=== PATIENT | male | born 1975 | race African-American/Black ===

== ENCOUNTER 2021-12-29 21:18 | Emergency (ER) | payer SELFPAY ==
[~2021-12-29] VITALS: Ht 167.6 cm; Wt 72.6 kg
--- NOTE | 2021-12-29 21:19 | NUR ---
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 PATIENT LKWT AT 1630. PATIENT IS A/O X 4, RR EVEN AND UNLABORED, NO SOB NOTED. 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 PATIENT TAKEN TO ER BED 10, PATIENT CONNECTED TO CARDIAC AND POX MONITOR.
--- NOTE | 2021-12-29 21:20 | NUR ---
RAC #[id number]; PATENT AND INTACT. BLOOD COLLECTED AND SENT TO LAB
--- NOTE | 2021-12-29 21:21 | NUR ---
DR. ARRINGTON AT PT'S BEDSIDE
--- NOTE | 2021-12-29 21:22 | NUR ---
CODE STROKE ACTIVATED
--- NOTE | 2021-12-29 21:22 | NUR ---
CODE STROKE CALLED
--- NOTE | 2021-12-29 21:22 | NUR ---
STUDENT ACCOUNTS MANAGER AT PT'S BEDSIDE
--- NOTE | 2021-12-29 21:26 | NUR ---
PT TAKEN TO CT VIA ACLS PROTOCOL
[2021-12-29] MEDS ORDERED: IOHEXOL-350 100 ML VIAL IV ONE (21:27)
[2021-12-29] MEDS ORDERED: IV NS 0.9% 250 ML IV ONE (21:27)
[2021-12-29 21:30] LABS: BASOPHILS # (AUTO) 0.1 K/uL (0.0-0.2); BASOPHILS % (AUTO) 1.2 % (0.0-2.0); EOSINOPHILS % (AUTO) 3.2 % (0.0-6.0); HEMATOCRIT 30 % (39-51); HEMOGLOBIN 9.6 g/dL (13.5-17.5); LYMPHOCYTES # (AUTO) 4.1 K/uL (0.8-4.8); LYMPHOCYTES % (AUTO) 43.6 % (20.0-44.0); MEAN CORPUSCULAR HGB CONC 33 g/dl (31.0-36.0); MEAN CORPUSCULAR VOLUME 72 fL (80-96); MONOCYTES # (AUTO) 0.8 K/uL (0.1-1.30); MONOCYTES % (AUTO) 8.8 % (2.0-12.0); NEUTROPHILS % (AUTO) 43.2 % (43.0-81.0); PLATELET COUNT (AUTO) 153 K/uL (150-450); WHITE BLOOD COUNT (AUTO) 9.3 K/uL (4.3-11.0)
--- NOTE | 2021-12-29 21:35 | NUR ---
PT RETURNED TO ER BED [address] VIA ACLS PROTOCOL
[2021-12-29 21:42] LABS: CALCIUM, SERUM 8.8 mg/dL (8.5-10.1); CARBON DIOXIDE 22 mmol/L (21-32); CHLORIDE 104 mmol/L (98-107); CREATININE 0.9 mg/dL (0.6-1.3); GLUCOSE 113 mg/dL (74-106); POTASSIUM 3.6 mmol/L (3.5-5.1); SODIUM SERUM 138 mmol/L (136-145); UREA NITROGEN, BLOOD 14 mg/dL (7-18)
--- NOTE | 2021-12-29 21:49 | NUR ---
PT ON PHONE CALL WITH TELEHEALTH
[2021-12-29] MEDS ORDERED: diphenhydrAMINE HCL 50 MG/ML VIAL IV ONE (22:00)
[2021-12-29] MEDS ORDERED: ASPIRIN 81 MG TAB.CHEW PO ONE (22:00)
[2021-12-29] MEDS ORDERED: METOCLOPRAMIDE HCL 10 MG/2 ML VIAL IV ONE (22:00)
[2021-12-29] MEDS ORDERED: KETOROLAC TROMETHAMINE INJ 30 MG/ML VIAL IV ONE (22:00)
[2021-12-29] MEDS ORDERED: ATORVASTATIN 40 MG TABLET PO SCH (22:00)
--- NOTE | 2021-12-29 22:01 | NUR ---
covid swab sent to lab
[2021-12-29] MEDS ORDERED: METOCLOPRAMIDE HCL 10 MG/2 ML VIAL ONE (22:05)
[2021-12-29] MEDS ORDERED: diphenhydrAMINE HCL 50 MG/ML VIAL ONE (22:05)
[2021-12-29] MEDS ORDERED: ATORVASTATIN 40 MG TABLET ONE (22:05)
[2021-12-29] MEDS ORDERED: KETOROLAC TROMETHAMINE INJ 30 MG/ML VIAL ONE (22:05)
[2021-12-29] MEDS ORDERED: ASPIRIN 81 MG TAB.CHEW ONE (22:05)
[2021-12-29 22:15] VITALS: BP 148/77
[2021-12-29] MEDS ORDERED: MAG HYDROX/AL HYDROX/SIMETH 30 ML UDC PO PRN (23:00)
[2021-12-29] MEDS ORDERED: MAGNESIUM HYDROXIDE 30 ML UDC PO PRN (23:00)
[2021-12-29] MEDS ORDERED: ONDANSETRON HCL/PF 4 MG/2 ML VIAL IVP PRN (23:00)
[2021-12-29] MEDS ORDERED: Z GUARD REMEDY 4 OZ OINT TP PRN (23:00)
[2021-12-29] MEDS ORDERED: HYDROCODONE/APAP 5/325MG TABLET PO PRN (23:00)
[2021-12-29] MEDS ORDERED: MORPHINE SULFATE INJ 2 MG/ML DISP.SYRIN IV PRN (23:00)
[2021-12-29] MEDS ORDERED: ZOLPIDEM TARTRATE 5 MG TABLET PO PRN (23:00)
[2021-12-29] MEDS ORDERED: ACETAMINOPHEN 325 MG TABLET PO PRN (23:00)
--- NOTE | 2021-12-29 23:03 | NUR ---
PATIENT STATED TO HAVE BACK PAIN, PT STATED HAS ALLERGY TO MORPHINE. PATIENT OFFERED NORCO PO, PT DOES NOT WANT AT THIS TIME.
--- NOTE | 2021-12-29 23:40 | NUR ---
Patient does not wish to proceed with medical care recommended by Dr. Read. Patient given information related to possible complications, up to and including , which could occur as a result of leaving the hospital at this time. Patient verbalizes understanding of risks involved due to leaving against medical advice. Patient refused to sign AMA form. IV removed. Catheter intact and site benign. Pressure and 4x4 applied to site. No bleeding noted. Pt ambulatory with a steady gait.
[2021-12-30] MEDS ORDERED: PANTOPRAZOLE 40 MG TABLET.DR PO SCH (07:30)
[2021-12-30] MEDS ORDERED: ASPIRIN 81 MG TAB.CHEW PO SCH (09:00)
== END 2021-12-29 23:40 | disposition left against medical advice (07) ==
LOC: ER 21:18
DX: I63.9 Cerebral infarction, unspecified (principal); R29.710 NIHSS score 10; E78.5 Hyperlipidemia, unspecified; R29.810 Facial weakness; Z89.222 Acquired absence of left upper limb above elbow; F43.10 Post-traumatic stress disorder, unspecified; D64.9 Anemia, unspecified; R07.9 Chest pain, unspecified; Z20.822 Contact with and (suspected) exposure to COVID-19; Z53.29 Procedure and treatment not carried out because of patient's decision for other reasons
CPT/HCPCS: 36415; 70450; 70496; 70498; 71045; 80048; 84484 ×2; 85025; 85730; 87426; 93005; 96374; 96375; 99285; C9803; J1200; J1885; J2765; J7030; J7050; Q9967